=== PATIENT | female | born 1990 | race Caucasian/White ===

== ENCOUNTER 2025-02-05 09:20 | Emergency (ER) | payer OTHER ==
[~2025-02-05] VITALS: Ht 154.9 cm; Wt 80.3 kg
[2025-02-05] MEDS ORDERED: Ketorolac Tromethamine 30mg Vial IM ONE (12:20)
== END 2025-02-05 12:44 | disposition home or self-care (01) ==
LOC: ER 09:20
DX: M25.571 Pain in right ankle and joints of right foot (principal); Z59.89 Other problems related to housing and economic circumstances
CPT/HCPCS: 93971; 96372; 99283-25; J1885